=== PATIENT | female | born 1995 | race Caucasian/White ===

== ENCOUNTER 2021-09-02 17:28 | Emergency (ER) | payer OTHER, SELFPAY ==
[2021-09-02 17:30] VITALS: BP 132/84; PULSE 86; RESP 18; TEMP 36.6; O2SAT 100
--- NOTE | 2021-09-02 17:41 | ED.GENADULT ---
HPI - General Adult General Chief complaint: Unspecified Stated complaint: Facial Drooping Time Seen by Provider: 09/02/21 17:35 Source: patient Mode of arrival: ambulatory Limitations: no limitations History of Present Illness HPI narrative: Patient is a 26-year-old female who presents to the ED with report of L sided facial droop. Patient reports her upper wisdom teeth are growing in and she has been having intermittent dental pain in her left upper molar region, radiating into her left ear, for several months and again since Tuesday. She does have a dentist she is scheduled to see in the area. She then noticed yesterday a strange sensation to her left sided facial cheek. She denies any distinct numbness, but states her L facial cheek just felt different. She looked in the mirror and also noticed a slight left-sided droop. She states she has been unable to fully close her left eye or her mouth around a straw, but denies any drooling or difficultly speaking or eating. No slurred speech, confusion, weakness, headache, numbness, tingling, vision changes, fever, chills, rashes. Related Data Allergies Allergy/AdvReac Type Severity Reaction Status Date / Time No Known Allergies Allergy Verified 09/02/21 17:41 Review of Systems Review of Systems: CONSTITUTIONAL: Denies fever, chills, or sweats. EYES: Reports unable to fully close L eye. Denies visual changes, redness, or discharge. ENT: Reports intermittent L upper molar pain, L otalgia. Denies drooling, dysphagia. CARDIOVASCULAR: Denies chest pain. RESPIRATORY: Denies dyspnea. GASTROINTESTINAL: Denies abdominal pain, nausea, vomiting, or diarrhea. SKIN: Denies rash or itching. NEUROLOGIC: Denies slurred speech, confusion, dysarthria, headache, numbness, or weakness. All systems reviewed & are unremarkable except as noted in HPI and below PMFSH Past Medical History Medical History (Updated 09/02/21 @ 18:07 by Francisca Renner PA-C) Asthma Surgical History Surgical History (Updated 09/02/21 @ 17:54 by Francisca Renner PA-C) No pertinent past surgical history Social History Social History (Updated 09/02/21 @ 17:54 by Francisca Renner PA-C) Smoking status: Never smoker Substance use type: marijuana Exam Narrative: GENERAL: Well appearing, well-nourished, non-toxic, in no acute distress. HEAD: Normocephalic, atraumatic. EYES: PERRL/EOMI, conjunctivae clear bilaterally. No erythema. Delayed closing of left eye. Slightly unable to fully close left eye, very very thin line of inferior sclera seen. No nystagmus. No discharge. NOSE: Normal, no drainage. Negative Mirza sign. EARS:TMS clear, with good light reflex. No erythema or bulging. No vesicles bilaterally. THROAT: Pharynx clear, no exudate. MMs moist. NECK: Supple. No adenopathy, no masses. No tenderness palpation. RESPIRATORY: Airway patent, respirations nonlabored. Clear to auscultation bilaterally, no rales, rhonchi, wheezing. CARDIOVASCULAR: Regular rate and rhythm without murmurs, rubs, or gallops. Peripheral pulses 2+ and equal bilaterally. MUSCULOSKELETAL: Moves all extremities. Strength/ROM intact without gross deformities or TTP. SKIN: Warm, dry, normal color. No rashes. NEURO: A&O X3. Speech clear. Follows commands. CN II-XII intact. Sharp and dull sensation intact in face and extremities bilaterally. Steady gait. No ataxic movements. Strength 5/5 in upper and lower extremities bilaterally. [id number] and [id number] testing intact bilaterally. No pronator drift. PSYCHIATRIC: Appropriate mood and affect. Normal interaction. Course Vital Signs Vital signs: Vital Signs Temperature 97.9 F 09/02/21 17:30 Pulse Rate 86 09/02/21 17:30 Respiratory Rate 18 09/02/21 17:30 Blood Pressure 132/84 09/02/21 17:30 Pulse Oximetry 100 09/02/21 17:30 Temperature 97.9 F 09/02/21 17:30 Pulse Rate 86 09/02/21 17:30 Respiratory Rate 18 09/02/21 17:30 Blood Pressure 132/84 09/02/21 17:30
== END 2021-09-02 18:56 | disposition home or self-care (01) ==
LOC: ANHED 18:26
PROVIDERS: Emergency Provider Family Medicine
DX: G51.0 Bell's palsy (principal); J45.909 Unspecified asthma, uncomplicated
CPT/HCPCS: 99283